=== PATIENT | female | born 1990 | race Caucasian/White ===

== ENCOUNTER 2022-11-05 13:31 | Inpatient (IN) | payer MEDICAID, OTHER ==
[2022-11-05] MEDS ORDERED: CEFAZOLIN 2 GM in Sodium Chloride 0.9% 100 ML IVPB SCH (14:54)
[2022-11-05] MEDS ORDERED: Bicitra 30 ML UDCUP PO PRN (14:54)
[2022-11-05] MEDS ORDERED: Famotidine/PF 20 mg/2ml Vial SLOW IVP PRN (14:54)
[2022-11-05] MEDS ORDERED: Ondansetron PF 4 MG/2 ML Vial IVP PRN ×2 (14:54→18:41)
[2022-11-05] MEDS ORDERED: Promethazine HCl 25 MG/ML VIAL IM PRN ×3 (14:54→23:10)
[2022-11-05] MEDS ORDERED: hydrALAZINE 20 MG/ML VIAL SLOW IVP PRN ×2 (14:54→23:10)
[2022-11-05] MEDS ORDERED: Methylergonovine 0.2 MG/ML VIAL IM PRN (14:54)
[2022-11-05] MEDS ORDERED: Tranexamic Acid 1,000 MG/10 ML VIAL IVP PRN (14:54)
[2022-11-05] MEDS ORDERED: Carboprost 250 MCG/ML AMP IM PRN (14:54)
[2022-11-05] MEDS ORDERED: Diphenoxylate HCl/Atropine Tablet PO PRN (14:54)
[2022-11-05] MEDS ORDERED: Misoprostol 200 MCG TAB PR PRN (14:54)
[2022-11-05] MEDS ORDERED: NS w/ Oxytocin 30 units 500 ML IV SCH ×2 (14:54→23:10)
[2022-11-05] MEDS ORDERED: clonazePAM 1 MG TAB PO PRN (15:52)
[2022-11-05 15:57] LABS: Hematocrit 36.3 % (34.9-44.5); Hemoglobin 12.2 g/dL (12.0-15.5); Mean Corpuscular HGB CONC 33.6 g/dL (32.0-36.0); Mean Corpuscular Hemoglobin 28.5 pg (27.0-33.0); Mean Corpuscular Volume 84.8 fl (81.6-98.3); Mean Platelet Volume 10.9 fl (7.4-10.4); Platelet Count 221 10x3/uL (150-450); RBC Distribution Width 13.3 % (11.5-14.5); Red Blood Cell (RBC) Count 4.28 10x6/uL (3.90-5.03); White Blood Cell (WBC) Count 6.1 10x3/uL (3.5-10.5)
[2022-11-05] MEDS ORDERED: CEFAZOLIN 2 GM VIAL ONE (16:26)
[2022-11-05] MEDS ORDERED: Famotidine/PF 20 mg/2ml Vial ONE (16:26)
[2022-11-05 16:33] LABS: Syphilis Antibody Nonreactive (Nonreactive); Syphilis Antibody Index 0.09 S/CO (<1.00 Non-Reactive)
[2022-11-05 16:34] LABS: HBSAg Index 0.18 S/CO (0-0.99); Hep B Surf Ag - L&D Non-Reactive S/CO (NonReactive)
[2022-11-05 16:37] VITALS: BMI 23.8
[2022-11-05] MEDS: Lactated Ringer's 1,000 ML IV SCH ×2 (16:48→18:15)
[2022-11-05] MEDS ORDERED: fentaNYL 50 mcg/mL 1 mL Vial ONE ×2 (16:59→20:40)
[2022-11-05] MEDS ORDERED: Dexamethasone 4 mg/ml Vial ONE (17:01)
[2022-11-05] MEDS ORDERED: Ondansetron PF 4 MG/2 ML Vial ONE (17:01)
[2022-11-05] MEDS ORDERED: Oxytocin 10 UNITS/ML VIAL ONE (17:01)
[2022-11-05] MEDS ORDERED: Ketorolac Tromethamine 30 MG/ML VIAL ONE (17:02)
[2022-11-05] MEDS ORDERED: HYDROmorphone 2 MG/ML VIAL SLOW IVP PRN (18:41)
[2022-11-05] MEDS ORDERED: Naloxone HCl 0.4 mg/ml Vial IV PRN (18:41)
[2022-11-05] MEDS ORDERED: Ketorolac Tromethamine 30 MG/ML VIAL IVP PRN (18:41)
[2022-11-05] MEDS ORDERED: Promethazine HCl 25 MG SUPP PR PRN (18:41)
[2022-11-05] MEDS ORDERED: Fentanyl 100 MCG/2 ML VIAL SLOW IVP PRN (18:41)
[2022-11-05] MEDS ORDERED: diphenhydrAMINE 50 MG/ML VIAL IVP PRN (18:41)
[2022-11-05] MEDS ORDERED: Ondansetron HCl/PF 4 MG/2 ML Vial IVP PRN (18:41)
[2022-11-05] MEDS ORDERED: Meperidine HCl/PF 25 MG/ML VIAL SLOW IVP PRN (18:41)
[2022-11-05] MEDS ORDERED: Naloxone HCl 0.4 mg/ml Vial IVP PRN ×2 (18:41)
[2022-11-05] MEDS ORDERED: Moisturizing Cream (Eucerin) 113 GM JAR TOP PRN (18:41)
[2022-11-05] MEDS ORDERED: Ketorolac Tromethamine 30 MG/ML VIAL IVP SCH (18:45)
[2022-11-05] MEDS ORDERED: Communication Order-Pharmacy FS SCH (18:45)
[2022-11-05] MEDS ORDERED: Lanolin Ointment 7 GM TUBE TOP PRN (23:10)
[2022-11-05] MEDS ORDERED: Bisacodyl 10 MG SUPP PR PRN (23:10)
[2022-11-05] MEDS ORDERED: Boostrix 0.5 ML (Tdap) VIAL (>/=7 yrs of age) IM ONE (23:10)
[2022-11-05] MEDS ORDERED: diphenhydrAMINE 25 MG CAP PO PRN (23:10)
[2022-11-05] MEDS ORDERED: Ferrous Sulfate 325 MG TAB PO SCH (23:30)
[2022-11-05] MEDS ORDERED: Docusate 100 MG CAP PO SCH (23:30)
[2022-11-06 04:05] LABS: Hematocrit 34.8 % (34.9-44.5); Hemoglobin 11.6 g/dL (12.0-15.5); Mean Corpuscular HGB CONC 33.3 g/dL (32.0-36.0); Mean Corpuscular Hemoglobin 28.6 pg (27.0-33.0); Mean Corpuscular Volume 85.9 fl (81.6-98.3); Mean Platelet Volume 11.1 fl (7.4-10.4); Platelet Count 207 10x3/uL (150-450); RBC Distribution Width 12.9 % (11.5-14.5); Red Blood Cell (RBC) Count 4.05 10x6/uL (3.90-5.03); White Blood Cell (WBC) Count 13.2 10x3/uL (3.5-10.5)
[2022-11-06] MEDS ORDERED: HYDROcodone/Acetaminophen 5/325 mg Tablet PO PRN ×3 (04:18→06:45)
[2022-11-06] MEDS: HYDROcodone/Acetaminophen 5/325 mg Tablet PO PRN ×4 (04:24→16:25)
[2022-11-06] MEDS ORDERED: Meperidine HCl/PF 25 MG/ML VIAL IM PRN (06:45)
[2022-11-06] MEDS: Ketorolac Tromethamine 30 MG/ML VIAL IVP SCH ×4 (07:46→13:50)
[2022-11-06] MEDS: Prenatal Vitamin 1 TAB PO SCH (08:23)
[2022-11-06] MEDS: Simethicone Chewable 80 MG TAB PO PRN ×3 (08:23→20:33)
[2022-11-06] MEDS: Docusate 100 MG CAP PO SCH ×2 (08:24→20:33)
[2022-11-06] MEDS: Ferrous Sulfate 325 MG TAB PO SCH ×2 (08:40→19:08)
[2022-11-06] MEDS: clonazePAM 1 MG TAB PO PRN (10:05)
[2022-11-06] MEDS: Ondansetron PF 4 MG/2 ML Vial IVP PRN (20:33)
[2022-11-06] MEDS: Ibuprofen 800 MG TAB PO SCH (21:44)
[2022-11-06] MEDS: Lactated Ringer's 1,000 ML IV SCH (21:51)
[2022-11-07] MEDS: HYDROcodone/Acetaminophen 5/325 mg Tablet PO PRN ×6 (00:24→21:05)
[2022-11-07] MEDS: Simethicone Chewable 80 MG TAB PO PRN ×4 (05:49→21:05)
[2022-11-07] MEDS: Ibuprofen 800 MG TAB PO SCH ×3 (05:49→21:04)
[2022-11-07] MEDS: Ferrous Sulfate 325 MG TAB PO SCH ×2 (08:23→19:19)
[2022-11-07] MEDS: Prenatal Vitamin 1 TAB PO SCH (08:37)
[2022-11-07] MEDS: clonazePAM 1 MG TAB PO PRN (08:37)
[2022-11-07] MEDS: Docusate 100 MG CAP PO SCH ×2 (08:37→21:05)
[2022-11-07] MEDS: Ondansetron PF 4 MG/2 ML Vial IVP PRN ×3 (08:38→16:42)
[2022-11-07] MEDS: Ondansetron ODT 4 MG TAB PO PRN (21:04)
[2022-11-08] MEDS: HYDROcodone/Acetaminophen 5/325 mg Tablet PO PRN ×5 (00:59→21:32)
[2022-11-08] MEDS: Simethicone Chewable 80 MG TAB PO PRN ×3 (00:59→18:49)
[2022-11-08] MEDS: clonazePAM 1 MG TAB PO PRN ×2 (01:00→08:49)
[2022-11-08] MEDS: Ondansetron ODT 4 MG TAB PO PRN ×3 (05:28→16:43)
[2022-11-08] MEDS: Ibuprofen 800 MG TAB PO SCH ×3 (05:28→21:31)
[2022-11-08] MEDS: Ferrous Sulfate 325 MG TAB PO SCH (08:33)
[2022-11-08] MEDS: Prenatal Vitamin 1 TAB PO SCH (08:49)
[2022-11-08] MEDS: Docusate 100 MG CAP PO SCH ×2 (08:49→21:31)
[2022-11-09] MEDS: Ferrous Sulfate 325 MG TAB PO SCH (00:10)
[2022-11-09] MEDS: clonazePAM 1 MG TAB PO PRN ×2 (00:11→08:37)
[2022-11-09] MEDS: Ibuprofen 800 MG TAB PO SCH (06:10)
[2022-11-09 08:03] VITALS: BP 113/73; TEMP 97.6
[2022-11-09] MEDS: Prenatal Vitamin 1 TAB PO SCH (08:11)
[2022-11-09] MEDS: Docusate 100 MG CAP PO SCH (08:11)
[2022-11-09] MEDS: HYDROcodone/Acetaminophen 5/325 mg Tablet PO PRN (08:12)
== END 2022-11-09 11:40 | disposition home or self-care (01) | DRG 788 ==
LOC: CSHLD 13:31 → CSHPP 21:45
PROVIDERS: ADMIT Family Medicine; ATTEND Family Medicine
PROC: 10D00Z1 Extraction of Products of Conception, Low, Open Approach (ICD-10-PCS; principal; 2022-11-05)
PROC: 3E0P05Z Introduction of Adhesion Barrier into Female Reproductive, Open Approach (ICD-10-PCS; 2022-11-05)
DX: O34.211 Maternal care for low transverse scar from previous cesarean delivery (principal); Z3A.39 39 weeks gestation of pregnancy; F31.9 Bipolar disorder, unspecified; F43.10 Post-traumatic stress disorder, unspecified; Z79.899 Other long term (current) drug therapy; Z91.041 Radiographic dye allergy status; Z37.0 Single live birth; O99.344 Other mental disorders complicating childbirth; Z86.19 Personal history of other infectious and parasitic diseases
CPT/HCPCS: 36415; 85027; 86780; 86850; 86900; 86901; 87340; J1100; J1885; J2175; J2405; J2590; J3010; J3490; J7120; Q0162; S0028